=== PATIENT | female | born 1960 | race Caucasian/White ===

== ENCOUNTER 2017-03-31 13:45 | Day surgery (SDC) | payer OTHER ==
[~2017-03-31] VITALS: Ht 177.8 cm; Wt 86.0 kg
[~2017-03-31 13:45] MED LIST: 0.9% Sodium Chloride 1,000 ML IV SCH; ALBU90AE IH; BECL8.7A6 INHALATION; Sodium Chloride LOK Flush 10 mL Syringe IV PRN; fentaNYL-PF 50 mCg/mL 2 mL Inj IVPUSH PRN
[2017-03-31 14:24] VITALS: BP 140/10; PULSE 77; RESP 16; O2SAT 98
[2017-03-31 15:50] VITALS: BP 136/85; PULSE 78; RESP 16; O2SAT 97
[2017-03-31 16:04] VITALS: BP 133/85; PULSE 78; RESP 14; O2SAT 98
[2017-03-31 16:07] VITALS: BP 130/79; PULSE 76; RESP 16; O2SAT 99
--- NOTE | 2017-03-31 16:13 | ENDO ---
[address] [address] ENDOSCOPY PROCEDURE PATIENT: DINORA QUINTANILLA : 1960 MR#: [id number] ADMIT: 03/31/2017 JOB ID: [id number] PROCEDURE: Colonoscopy. INDICATION: Patient with a personal history of colon polyps. Patient's ASA classification is one. Mallampati score is two. MEDICATIONS: Versed 8 mg, fentanyl 150 mcg. INSTRUMENT USED: PCF H 180 AL. PREPARATION QUALITY: Fair. PROCEDURE DETAILS: After informed consent was obtained, the patient was brought into the GI suite, where she was placed on oxygen via nasal cannula and monitored with continuous pulse oximeter, telemetry, and blood pressure monitoring. A time-out was performed, then she was placed in the left lateral decubitus position and medications were administered for sedation. Digital rectal exam was performed, which was unremarkable. The colonoscope was then inserted into the rectum and advanced under direct visualization to the cecum, which was identified by the presence of the ileocecal valve and appendiceal orifice. Once the cecum was reached, the colonoscope was withdrawn back to the rectum as the mucosa and lumen were examined. In the rectum, retroflexion was performed. Following retroflexion, the remaining air in the rectum was suctioned and procedure was completed. FINDINGS: In the ascending colon, just distal to the ileocecal valve, there was an approximately 1 cm pear-shaped polyp. The polyp had appearance consistent with a tubular adenoma. Using a using a hot snare, the polyp was removed by piecemeal. Following polypectomy the resulting mucosal defect had some mild oozing and therefore two hemoclips were placed successfully. The remainder of the colon exam was otherwise unremarkable. IMPRESSION: Ascending colon polyp. RECOMMENDATIONS: 1. Avoid NSAIDs and anticoagulants for 72 hours. 2. Repeat colonoscopy in three years. COMPLICATIONS: None. ESTIMATED BLOOD LOSS: Less than 5 mL.
--- NOTE | 2017-04-03 14:54 | PATH ---
SURGICAL PATHOLOGY Attending Physician:Dorian Borjas CASE STATUS: Signed Out PATIENT NAME: DINORA QUINTANILLA PID: [id number] : 1960 DATE COLLECTED:03/31/2017 00:00 SPECIMEN: Colon, Polyp CLINICAL HISTORY: 1). ASCENDING POLYPS X1 FINAL DIAGNOSIS: 1.ASCENDING COLON POLYPS: MULTIPLE FRAGMENTS OF MIXED TUBULAR AND VILLIFORM ADENOMA. ICD10 D12.6 GROSS DESCRIPTION: The specimen is received in formalin, labeled with the patient's name, sublabeled as ascending polyp, and consists of multiple fragments of mahmood white glistening rubbery semi-translucent tissue (2.5 x 1.7 x 0.5 cm in aggregate). Ink code: black-resection margin. Section code: (A) tissue fragments; (B) 2 largest fragments, bisected. Specimen entirely submitted. 04/02/17 JM MICRO DESCRIPTION: See diagnosis. ICD-9 CODES: CPT CODES: 1: 70566 Electronically Signed Out Darren Thacker MD [facility] Pathology [facility] [address], [place] [address] Technical component performed at [facility], [address] [place] [address] Ave[address], [place], [address]
== END 2017-03-31 23:59 | disposition home or self-care (01) ==
LOC: END 13:45
PROVIDERS: ATTEND Internal Medicine Gastroenterology
DX: Z12.11 Encounter for screening for malignant neoplasm of colon (principal); Z86.010 Personal history of colon polyps; D12.2 Benign neoplasm of ascending colon; J45.909 Unspecified asthma, uncomplicated; Z87.891 Personal history of nicotine dependence
CPT/HCPCS: 45385; 99153; G0500; J7030